=== PATIENT | male | born 1945 | race Caucasian/White ===

== ENCOUNTER 2017-12-10 07:14 | Day surgery (SDC) | payer MEDICARE ==
[~2017-12-10] VITALS: Ht 167.6 cm; Wt 114.0 kg
[~2017-12-10 07:14] MED LIST: ASPI-496 PO; BUPIVACAINE/PF 0.5% ONE; CALC1CAP8 PO; CHOL200074 PO; CINN500C2 PO; CITA10TA8 PO; EPINEPHRINE 1 MG/ML, 1ML ONE; GLUC1CAP13 PO; HGH; NATURE THROID PO; OLME5TAB4 PO; OMEG-173 PO; PANT40TA3 PO; PRAS1TAB3 PO; UBID100C24 PO; VITA1CAP5 PO; ZINC50CA PO; [UNRECOGNIZED DRUG - OTHER] PO; [UNRECOGNIZED DRUG - OTHER] PO; [UNRECOGNIZED DRUG - REMARK] PO
[2017-12-10] MEDS ORDERED: LACTATED RINGERS 1,000 ML IV SCH (07:51)
[2017-12-10 07:52] VITALS: BP 142/83
[2017-12-10] MEDS ORDERED: LIDOCAINE-MPF 1%, 2ML INFIL ONE (08:00)
[2017-12-10] MEDS ORDERED: EPHEDRINE 50 MG/ML, 1ML IVPush PRN (08:30)
[2017-12-10] MEDS ORDERED: hydrALAzine 20 MG/ML, 1ML IV PRN (08:30)
[2017-12-10] MEDS ORDERED: LABETALOL 5MG/ML, 20ML IV PRN (08:30)
[2017-12-10] MEDS ORDERED: ALBUTEROL SULFATE 2.5 MG/3 ML NPPB PRN (08:30)
[2017-12-10] MEDS ORDERED: ACETAMINOPHEN 325 MG TABLET PO PRN (08:30)
[2017-12-10] MEDS ORDERED: PROMETHAZINE 25 MG/ML, 1ML IV PRN (08:30)
[2017-12-10] MEDS ORDERED: METOPROLOL 1 MG/ML, 5ML IV PRN (08:30)
[2017-12-10] MEDS ORDERED: morphine SULFATE 10 MG/ML, 1ML IV PRN (08:30)
[2017-12-10] MEDS ORDERED: ONDANSETRON 2MG/ML, 2ML IVPush PRN (08:30)
[2017-12-10] MEDS ORDERED: OXYcodone 5 MG/5 ML ORAL.SOL UDC PO PRN (08:30)
[2017-12-10] MEDS ORDERED: FENTANYL PF 100 MCG/2ML IV PRN (08:30)
[2017-12-10] MEDS ORDERED: FENTANYL PF 250 MCG/5ML ONE (09:03)
[2017-12-10] MEDS ORDERED: PROPOFOL 10 MG/ML, 20ML ONE (09:06)
[2017-12-10] MEDS ORDERED: SUCCINYLCHOLINE 20 MG/ML, 10ML ONE (09:06)
[2017-12-10] MEDS ORDERED: DEXAMETHASONE 4 MG/ML, 1ML ONE ×2 (09:22→09:34)
[2017-12-10] MEDS ORDERED: ONDANSETRON 2MG/ML, 2ML ONE (09:22)
[2017-12-10] MEDS ORDERED: EPHEDRINE 50 MG/ML, 1ML ONE (10:03)
[2017-12-10] MEDS ORDERED: OXYcodone 5 MG/5 ML ORAL.SOL UDC ONE (11:15)
[2017-12-10] MEDS ORDERED: ACETAMINOPHEN 650 MG/20.3 ML UDC ONE (11:15)
== END 2017-12-10 14:30 ==
LOC: OUT 07:14
PROVIDERS: ATTEND Surgery
DX: D17.0 Benign lipomatous neoplasm of skin and subcutaneous tissue of head, face and neck (principal); E78.00 Pure hypercholesterolemia, unspecified; E04.8 Other specified nontoxic goiter; Z98.890 Other specified postprocedural states; Z79.82 Long term (current) use of aspirin; Z87.891 Personal history of nicotine dependence
CPT/HCPCS: 21554; 88305; J0171; J0330; J1100; J2405; J2704; J3010; J3490; J7120; 88304; C1760

== ENCOUNTER → 2021-01-05 | Outpatient (CLI) | payer MEDICARE ==
[~2021-01-05] MED LIST changes: -BUPIVACAINE/PF 0.5% ONE; -EPINEPHRINE 1 MG/ML, 1ML ONE
== END | disposition home or self-care (01) ==
LOC: CFH 14:37
PROVIDERS: ATTEND Psychiatry & Neurology Neurology
DX: G31.89 Other specified degenerative diseases of nervous system (principal); R26.9 Unspecified abnormalities of gait and mobility
CPT/HCPCS: 70551